=== PATIENT | female | born 1990 | race Hispanic/Latino ===

== ENCOUNTER 2018-06-04 14:35 | Inpatient (IN) | payer MEDICAID, OTHER | END 2018-06-08 16:30 | disposition home or self-care (01) | LOC: EDH 14:35 → EDHIP 14:37 → 3AH 23:45 | DX: N13.6 Pyonephrosis (principal) ==

== ENCOUNTER 2018-06-18 14:23 | Emergency (ER) | payer MEDICAID ==
[~2018-06-18 14:23] MED LIST: CEPH500B PO; TYL3 PO
== END 2018-06-18 16:04 | disposition left against medical advice (07) ==
LOC: EDH 14:23
DX: Z53.21 Procedure and treatment not carried out due to patient leaving prior to being seen by health care provider (principal)

== ENCOUNTER 2018-06-28 14:47 | Emergency (ER) | payer MEDICAID ==
[2018-06-28 15:32] LABS: BASOPHILS % (AUTO) 1.2 % (0.0-5.0); HEMATOCRIT 34.7 % (36-48); LYMPHOCYTES % (AUTO) 28.4 % (21.0-51.0); MEAN CORPUSCULAR HEMOGLOBIN 22.3 pg (27.0-33.0); MEAN CORPUSCULAR VOLUME 71.8 fL (79-99); MONOCYTES % (AUTO) 7.1 % (3.0-13.0); NEUTROPHILS % (AUTO) 61.3 % (40.0-77.0); NUCLEATED RED BLOOD CELLS 0.1 % (0.0-0.19); PLATELET COUNT (AUTO) 491 K/uL (130-400); RED BLOOD CELL COUNT(AUTO) 4.83 MIL/uL (4.00-5.50); RED CELL DISTRIBUTION WIDTH 18.8 % (11.0-15.5); WHITE BLOOD COUNT (AUTO) 10.7 K/uL (4.8-10.8)
[2018-06-28 15:42] LABS: POTASSIUM 3.2 mmol/L (3.5-5.1)
[2018-06-28 18:16] LABS: APPEARANCE,URINE TURBID (CLEAR); BILIRUBIN,URINE SMALL (NEGATIVE); COLOR,URINE YELLOW (YELLOW); GLUCOSE, URINE (UA) NEGATIVE (NEGATIVE); KETONES,URINE 15 mg/dL (NEGATIVE); LEUKOCYTE ESTERASE ,URINE LARGE (NEGATIVE); NITRATE,URINE POSITIVE (NEGATIVE); OCCULT BLOOD,URINE NEGATIVE (NEGATIVE); PH,URINE 8.5 (5.0-8.0); PROTEIN,URINE >=300 mg/dL (NEGATIVE)
[2018-06-28 18:19] LABS: HCG,QUAL RESULT NEGATIVE (NEGATIVE)
[2018-06-28 18:21] LABS: BACTERIA,URINE Many /HPF (None Seen); RBC,URINE None Seen /HPF (0-1); SQUAMOUS EPITHELIAL CELL,UR None Seen /HPF (0-2)
[2018-06-28 18:22] LABS: AMORPHOUS SEDIMENT,UR Moderate /LPF (None Seen); TRIPLE PHOSPHATE CRYSTAL,UR Many /LPF (None Seen)
== END 2018-06-28 15:59 | disposition left against medical advice (07) ==
LOC: EDH 14:47
DX: T83.84XA Pain due to genitourinary prosthetic devices, implants and grafts, initial encounter (principal)
CPT/HCPCS: 36415; 80048; 81001; 81025; 85025

== ENCOUNTER 2018-08-12 20:54 | Inpatient (IN) | payer MEDICAID, OTHER | END 2018-08-16 17:26 | disposition home or self-care (01) | LOC: EDH 20:54 → 4AH 08-13 16:06 → EDHIP 20:55 | PROC: 0T25X0Z Change Drainage Device in Kidney, External Approach (ICD-10-PCS; principal; ~2018-08-12) | DX: T83.092A Other mechanical complication of nephrostomy catheter, initial encounter (principal); N39.0 Urinary tract infection, site not specified; B96.4 Proteus (mirabilis) (morganii) as the cause of diseases classified elsewhere; Z87.442 Personal history of urinary calculi ==

== ENCOUNTER 2018-09-17 12:26 | Emergency (ER) | payer MEDICAID ==
[~2018-09-17 12:26] MED LIST changes: +CEPH-578 PO; -CEPH500B PO
[2018-09-17 12:55] LABS: APPEARANCE,URINE CLOUDY (CLEAR); BILIRUBIN,URINE SMALL (NEGATIVE); COLOR,URINE YELLOW (YELLOW); GLUCOSE, URINE (UA) NEGATIVE (NEGATIVE); KETONES,URINE NEGATIVE (NEGATIVE); LEUKOCYTE ESTERASE ,URINE LARGE (NEGATIVE); NITRATE,URINE NEGATIVE (NEGATIVE); OCCULT BLOOD,URINE LARGE (NEGATIVE); PROTEIN,URINE 30 mg/dL (NEGATIVE)
[2018-09-17 12:59] LABS: HCG,QUAL RESULT NEGATIVE (NEGATIVE)
[2018-09-17 13:01] LABS: BACTERIA,URINE Moderate /HPF (None Seen); MUCUS,URINE Few LPF (None Seen)
[2018-09-17 13:03] LABS: AMPHET/METH SCREEN,URINE NEGATIVE (NEGATIVE); BARBITURATE SCREEN, URINE NEGATIVE (NEGATIVE); BENZODIAZEPINES SCREEN,URINE POSITIVE (NEGATIVE); CANNABINOID SCREEN,URINE POSITIVE (NEGATIVE); COCAINE SCREEN,URINE NEGATIVE (NEGATIVE); OPIATE SCREEN,URINE NEGATIVE (NEGATIVE); PHENCYCLIDINE SCREEN,URINE NEGATIVE (NEGATIVE)
[2018-09-17 13:11] LABS: BASOPHILS % (AUTO) 0.5 % (0.0-5.0); EOSINOPHILS % (AUTO) 2.6 % (0.0-8.0); HEMATOCRIT 33.5 % (36-48); LYMPHOCYTES % (AUTO) 25.7 % (21.0-51.0); MEAN CORPUSCULAR HEMOGLOBIN 21.9 pg (27.0-33.0); MEAN CORPUSCULAR HGB CONC 30.7 g/dL (32.0-36.0); MEAN CORPUSCULAR VOLUME 71.6 fL (79-99); MONOCYTES % (AUTO) 4.8 % (3.0-13.0); NEUTROPHILS % (AUTO) 66.4 % (40.0-77.0); PLATELET COUNT (AUTO) 407 K/uL (130-400); RED BLOOD CELL COUNT(AUTO) 4.68 MIL/uL (4.00-5.50); RED CELL DISTRIBUTION WIDTH 17.3 % (11.0-15.5); WHITE BLOOD COUNT (AUTO) 10.9 K/uL (4.8-10.8)
[2018-09-17 13:19] LABS: CARBON DIOXIDE 29 mmol/L (21-32); CHLORIDE 105 mmol/L (101-111); CREATININE 0.7 mg/dL (0.5-1.5); GLOMERULAR FILTR. RATE CALC 105 mL/min (>60); GLUCOSE,RANDOM 107 mg/dL (70-105); POTASSIUM 3.2 mmol/L (3.5-5.1); SODIUM SERUM 142 mmol/L (136-145); UREA NITROGEN, BLOOD 8 mg/dL (7-18)
[2018-09-17 13:24] LABS: ACETAMINOPHEN < 1 mcg/mL (10-30); ALANINE AMINOTRANSFERASE 15 U/L (12-78); ALBUMIN 3.5 g/dL (3.5-5.0); ALCOHOL, BLOOD < 3 mg/dL (0-10); ASPARTATE AMINOTRANSFERASE 17 U/L (10-37); BILIRUBIN,TOTAL 0.3 mg/dL (0.2-1.0); SALICYLATE 7.8 mg/dL (2.8-20.0)
[2018-09-17] MEDS ORDERED: LIDOCAINE HCL-MPF 1% 2ML VIAL ONE (13:58)
[2018-09-17] MEDS ORDERED: CEFTRIAXONE SODIUM 1 GM ONE (13:58)
[2018-09-17] MEDS ORDERED: MAGNESIUM OXIDE 400 MG TABLET PO ONE (14:07)
[2018-09-17] MEDS ORDERED: POTASSIUM CHLORIDE 20 MEQ ERTAB PO ONE (14:07)
== END 2018-09-17 16:31 | disposition home or self-care (01) ==
LOC: EDH 12:26 → EEVIPCON 12:26 → EDH 16:31
DX: F32.9 Major depressive disorder, single episode, unspecified (principal); F41.1 Generalized anxiety disorder; N39.0 Urinary tract infection, site not specified; E87.6 Hypokalemia; R45.851 Suicidal ideations; F14.10 Cocaine abuse, uncomplicated; F13.20 Sedative, hypnotic or anxiolytic dependence, uncomplicated; Z87.442 Personal history of urinary calculi; Z72.0 Tobacco use
CPT/HCPCS: 36415; 80053; 80305; 81001; 81025; 82550; 85025; 87088; 96372; 99284; G0480 ×2; G0481; J0696; J3490